=== PATIENT | male | born 1980 ===

== ENCOUNTER 2020-08-06 08:12 | Emergency (ER) | payer MEDICAID, SELFPAY ==
[2020-08-06 08:17] VITALS: BP 151/102; PULSE 85; RESP 16; O2SAT 100
--- NOTE | 2020-08-06 08:20 | PC.NURSE ---
pt ran out of dept and through ems doors into parking lot. paramedics brought pt back to room 14. superficial abrasions to right forearm. bruising noted to left abd and hip. abrasions to left thigh and lower leg. 2.5 cm laceration noted to left medial ankle. wound gaping, bleeding. abrasions noted to right thigh. wounds. swelling noted to left upper chest. wounds cleansed with peroxide, neosporin, gauze and coban applied.
--- NOTE | 2020-08-06 09:38 | PC.NURSE ---
pt refusing blood gas. edp informed.
--- NOTE | 2020-08-06 09:43 | PC.NURSE ---
patient refused blood draw
--- NOTE | 2020-08-06 09:45 | PCRCNOTE ---
PT. AGITATED, ABG NOT DRAWN AT THIS TIME. R.N. STATES SHE WILL TALK TO THE
--- NOTE | 2020-08-06 09:49 | PC.NURSE ---
pt refusing blood draw
[2020-08-06 11:02] LABS: Basophils Percent Auto 0.4 % (0.2-1.2); Hematocrit 46.3 % (42.0-52.0); Hemoglobin 16.1 g/dL (14.0-18.0); Immature Granulocyte Absolute 0.01 K/mm3 (0.00-0.031); Immature Granulocyte Percent A 0.1 % (0-0.5); Lymphocytes Absolute Auto 1.57 K/mm3 (0.9-3.2); Lymphocytes Percent Auto 22.3 % (18.3-44.2); Mean Corpuscular HGB Conc 34.8 g/dl (32-36); Mean Corpuscular Hemoglobin 32.4 pg (26-34); Mean Corpuscular Volume 93.2 fl (80-100); Mean Platelet Volume 10.1 fl (7.4-10.4); Monocytes Absolute Auto 0.9 K/mm3 (0.1-0.6); Monocytes Percent Auto 12.1 % (2.6-8.5); Neutrophils Absolute Auto 4.6 K/mm3 (1.3-6.7); Neutrophils Percent Auto 65.1 % (45.5-73.1); Platelet Count Result 278 k/mm3 (150-375); Red Blood Count 4.97 M/mm3 (4.6-6.20)
[2020-08-06 11:11] LABS: Prothrombin Time 13.7 Seconds (11.1-14.7)
[2020-08-06 11:12] LABS: Partial Thromboplastin Time 23.9 SECONDS (22.3-36.8)
[2020-08-06 11:13] LABS: Acetaminophen < 10 ug/mL (10-30); Ethanol < 10 mg/dL (<10)
[2020-08-06 11:16] LABS: Alanine Aminotransferase 430 U/L (4-50); Albumin Level 4.5 g/dL (3.5-5.1); Alkaline Phosphatase 57 U/L (38-126); Anion Gap 11 mmol/L (8-16); Aspartate Amino Transferase 406 U/L (17-59); Bilirubin,Total 1.6 mg/dL (0.2-1.3); Blood Urea Nitrogen 15 mg/dL (9-20); Calcium 9.2 mg/dL (8.4-10.2); Carbon Dioxide 27 mmol/L (22-30); Chloride 101 mmol/L (98-107); Creatine Kinase 1237 U/L (55-170); Estimated CRCL calculation 88 ml/min; Estimated Glomerular Filt Rate > 60; Glucose 106 mg/dL (75-110); Potassium 3.7 mmol/L (3.4-5.0); Sodium 139 mmol/L (137-145)
--- NOTE | 2020-08-06 11:41 | PC.NURSE ---
pt left dept, brought back by security making provider aware
[2020-08-06 11:46] LABS: Add Urine Microscopic? YES; Appearance Urine Clear (Clear); Bacteria Urine Trace /hpf; Bilirubin Urine Negative (Negative); Blood Urine Negative (Negative); Color Urine Yellow (Yellow); Glucose Urine UA Negative (Negative); Ketones Urine Trace mg/dL (Negative); Leukocyte Esterase Ur Negative LEU/UL (Negative); Mucus Urine Rare /lpf; Nitrate Urine Negative (Negative); Protein Urine 2+ mg/dL (Negative); RBC Urine 0-2 /hpf (0-2); Specific Grav Ur 1.025 (1.001-1.035); Squamous Epithelial Cell Urine Rare /hpf (Few); WBC Urine 0-3 /hpf
[2020-08-06 11:47] LABS: Thyroid Stimulating Hormone 0.499 uIU/mL (0.465-4.680)
--- NOTE | 2020-08-06 11:48 | PC.NURSE ---
Per Dr. Denson, pt. can leave AMA. Pt.'s sister in [facility]. AMA signed by pt. see dispo note. Security escorted pt. to [facility].
--- NOTE | 2020-08-06 11:49 | PC.NURSE ---
pt. had IV placed by EMS [employer]. IV removed, dressing applied, site WNL prior to pt. going to [facility].
[2020-08-06 12:02] LABS: Barbiturate Screen Urine Negative (Negative); Benzodiazepines Screen Urine Negative (Negative)
[2020-08-06 12:04] LABS: Cannabinoid Screen Urine Negative (Negative); Cocaine Screen Urine Negative (Negative); Methadone Screen Urine Negative (Negative); Opiate Screen Urine Negative (Negative); Phencyclidine Screen Urine Negative (Negative)
[2020-08-06 12:19] LABS: Amphetamine Screen Urine Positive (Negative)
== END 2020-08-06 11:45 | disposition left against medical advice (07) ==
PROVIDERS: Emergency Provider Emergency Medicine
DX: R40.4 Transient alteration of awareness (principal)
CPT/HCPCS: 36415; 80053; 80307; 81001; 82550; 84443; 85025; 85610; 85730; 99199; A9270